=== PATIENT | female | born 1995 | race Two or more races ===

== ENCOUNTER → 2016-12-22 | Emergency (ER) | payer SELFPAY | END | disposition disaster alternative care site (69) | LOC: GAMB 17:26 | DX: S69.92XA Unspecified injury of left wrist, hand and finger(s), initial encounter (principal); M25.532 Pain in left wrist; M79.642 Pain in left hand; V49.9XXA Car occupant (driver) (passenger) injured in unspecified traffic accident, initial encounter ==